=== PATIENT | male | born 1980 | race Caucasian/White ===

== ENCOUNTER 2022-10-08 16:38 | Observation (INO) | payer MEDICAID, SELFPAY ==
[2022-10-08 16:49] VITALS: BP 166/84; PULSE 112; TEMP 37.3; O2SAT 95
--- NOTE | 2022-10-08 17:03 | CRLHL7_ITS ---
For Patients: As a result of the Century Cures Act, medical imaging exams and procedure reports are released immediately into your electronic medical record. You may view this report before your referring provider. If you have questions, please contact your health care provider. INDICATION: Left lower quadrant abdominal pain.. TECHNIQUE: CT abdomen and pelvis acquired with 100 cc Isovue 370 IV contrast. COMPARISON: None. FINDINGS: Lower chest: Unremarkable. Liver: Unremarkable. Normal in size and attenuation. No suspicious masses. Gallbladder and bile ducts: Unremarkable. No stones or inflammation. No biliary dilatation. Pancreas: Unremarkable. No mass or inflammation. Spleen: A few scattered calcified granulomas. Normal in size. No masses. Adrenal glands: Unremarkable. No nodules. Kidneys: Unremarkable. No suspicious masses, stones, or hydronephrosis. GI tract: Wall thickening, mucosal enhancement and surrounding fat stranding along the sigmoid colon indicative of diverticulitis. No focal adjacent drainable fluid collections. Associated small fluid in the pelvis. Associated peritoneal thickening along the left pelvis. Normal appendix. No bowel obstruction. Vasculature: Abdominal aorta is normal in caliber. Mesenteric arteries are patent. Lymph nodes: No lymphadenopathy. Peritoneum/Abdominal Wall: Unremarkable. No sign of mass or infiltration. No free air or significant free fluid. Pelvis: Thickening in the bladder wall may be related to incomplete distention or reactive to adjacent diverticulitis. Bones: Unremarkable for age. IMPRESSION: Acute uncomplicated sigmoid diverticulitis. Apparent wall thickening of the bladder likely related to incomplete distention or reactive to adjacent diverticulitis. Correlate with UA. Please note that all CT scans at this facility use dose modulation, iterative reconstruction, and/or weight-based dosing when appropriate to reduce radiation dose to as low as reasonably achievable. Dictated by Jhoan Nesbitt MD @ 10/08/2022 7:22:04 PM (Electronically Signed)
[2022-10-08 17:22] LABS: Appearance Urine Clear (Clear); Bilirubin Urine Negative (Negative); Blood Urine Negative (Negative); Color Urine Yellow (Yellow); Glucose Urine Negative (Negative); Ketones Urine 2+ (Negative); Leukocyte Esterase Urine Negative (Negative); Nitrite Urine Negative (Negative); Protein Urine 1+ (Negative); Specific Gravity Urine 1.015 (1.000-1.030); pH Urine 7.5 (5.0-8.5)
[2022-10-08 17:24] LABS: Basophils Percent Auto 0.1 % (0.0-3.0); Eosinophils Percent Auto 0.1 % (0.0-7.0); Hematocrit 43.4 % (37.0-53.0); Hemoglobin* 15.6 gm/dL (13.5-17.5); Immature Granulocytes Pct Auto 0.2 %; Lymphocytes Percent Auto 6.7 % (20-44); Mean Corpuscular HGB Conc 36 gm/dL (32-36); Mean Corpuscular Hemoglobin 32 pg (26-34); Mean Corpuscular Volume 88 fL (80-100); Monocytes Percent Auto 7.6 % (0.0-11.0); Neutrophils Percent Auto 85.3 % (42.0-72.0); Platelet Count* 223 K/uL (140-440); RDW Coefficient of Variation % 11.4 % (11.5-15.5); Red Blood Count 4.96 m/uL (4.30-5.90); Slide Review Reflex No; White Blood Count* 14.28 K/uL (4.50-11.00)
[2022-10-08] MEDS: KETOROLAC 30 MG/ML inj IVP (17:32)
[2022-10-08] MEDS: ONDANSETRON 2 MG/ML inj 4 MG IVP (17:32)
[2022-10-08] MEDS: 0.9 % SODIUM CHLORIDE 1000 ml 1,000 ML IV (17:32)
[2022-10-08 17:42] LABS: Albumin* 4.4 g/dL (3.3-5.0); Chloride* 98 mmol/L (96-114)
[2022-10-08 17:43] LABS: Potassium* 3.6 mmol/L (3.6-5.1); Sodium* 133 mmol/L (135-149)
[2022-10-08 17:45] LABS: Amylase* 54 U/L (18-89); Creatinine* 0.9 mg/dL (0.5-1.5); Estimated Glomerular Filt Rate 111 ml/min
[2022-10-08 17:46] LABS: Alkaline Phosphatase* 76 U/L (40-150); Aspartate Amino Transferase* 27 U/L (12-35); Bilirubin Direct* 0.5 mg/dL (0.0-0.5); Bilirubin Total* 1.9 mg/dL (0.1-1.5); Blood Urea Nitrogen* 12 mg/dL (5-24); Carbon Dioxide* 26 mmol/L (20-32); Glucose* 115 mg/dL (60-115); Lipase* 35 U/L (23-300); Total Protein* 7.7 g/dL (6.0-8.3)
[2022-10-08 17:47] LABS: Alanine Aminotransferase* 46 U/L (4-50); Calcium* 9.1 mg/dL (8.4-10.6)
[2022-10-08 17:50] LABS: RBC Urine 0-2 (0-2); Squamous Epithelial Cell Urine Few (None-Few); WBC Urine 0-2 (0-5)
--- NOTE | 2022-10-08 17:51 | ED_ITS ---
HPI - Abdominal Pain General Date Seen: 10/08/22 Chief Complaint: Abdominal Pain Stated Complaint: Abdominal Pain Time Seen by Provider: 10/08/22 16:40 Source: patient Mode of arrival: ambulatory Limitations: no limitations History of Present Illness HPI narrative: Patient is a very nice 41-year-old gentleman who presents here with abdominal pain, this occurred for the last 3-4 days he localizes to his left lower quadrant, he took some ibuprofen this morning with maybe a little improvement, it has gradually been getting worse, he is feels like that it is almost like yes to have a bowel movement or fart and will go way. He has never before had this, he called the nurse practitioner friend today and she was worried about diverticulitis. He went to the local urgent care but they shooed him away from there and told to come to the emergency room. Feels like he may have had a fever for the last couple days, no problems with urination, denies any cough cold-like symptoms sore throat, chest pain, he has never before had any previous surgeries, uses occasional alcohol but not to exceed accessed. MD elicited complaint: abdominal pain Pertinent past history: none Related Data Home Medications Medication Instructions Recorded Confirmed No Known Home Medications 10/08/22 10/08/22 Allergies Allergy/AdvReac Type Severity Reaction Status Date / Time No Known Drug Allergies Allergy Verified 10/08/22 16:53 Review of Systems Status of ROS Reports: 10 or more systems reviewed and unremarkable except as noted in History and below [facility] Social History Smoking Status: Never smoker How often do you have a drink containing alcohol: 2-3 times a week How many standard drinks containing alcohol do you have on a typical day: 1 or 2 AUDIT-C Alcohol total score: 3 Non-prescribed substance use: denies use service: No Exam Narrative: Exam Narrative: Patient is seen and stabilization room 2 he appears to be in no distress very nice gentleman eloquent speaker. His pupils are equal round reactive to light there is no scleral icterus or redness there is TMs are normal his oropharynx is normal his neck is supple, chest is good air entry bilaterally with no wheezing crackles noted his heart sounds are normal his abdomen shows tenderness more in the left lower quadrant, very specific, and I would describe it as moderate to severe. There is no peritoneal signs however bowel sounds are normal, normal male genitalia, no hernias are noted, nontender testicles. That shows no tenderness to palpation no swelling, no organomegaly, he moves all extremities independently and well. Const: Vital Signs, click to edit/add: Vital Signs - 24 hr 10/08/22 16:49 Temperature 99.1 F Pulse Rate [Pulse Oximeter] 112 H Blood Pressure [Ri ght Upper Arm] 166/84 H Pulse Oximetry 95 Oxygen Delivery Me thod Room Air Documenting provider has reviewed patient's vital signs: yes Course Course Hospital Course: I discussed with the patient that I spoke to Dr. De La Garza my general surgeon, he has a severe case of diverticulitis by my review of his CT and also Dr. De La Garza is we do not see any evidence of perforation but there is a lot of fluid in suggestion, that he would benefit from staying in the hospital. His white count is elevated, he has had a couple episodes of vomiting, he still is passing gas and having bowel movements but still would benefit from coming in, I then spoke to Dr. Moura my hospitalist, she agreed to admit him to the hospital. Vital Signs Vital signs: Initial Vital Signs Temperature 99.1 F 10/08/22 16:49 Temperature Source Temporal Artery Scan 10/08/22 16:49 Pulse Rate 112 H 10/08/22 16:49 Blood Pressure 166/84 H 10/08/22 16:49 Blood Pressure Mean 111 10/08/22 16:49 Blood Pressure Position Sitting 10/08/22 16:49 Pulse Oximetry 95 10/08/22 16:49 Oxygen Delivery Method Room Air 10/08/22 16:49 Vital Signs Temperature 99.1 F 10/08/22 16:49 Pulse Rate 112 H 10/08/22 16:49 Blood Pressure 166/84 H 10/08/22 16:49 Pulse Oximetry 95 10/08/22 16:49 Oxygen Delivery Method Room Air 10/08/22 16:49 Temperature 99.1 F 10/08/22 16:49 Pulse Rate 112 H 10/08/22 16:49 Blood Pressure 166/84 H 10/08/22 16:49 Pulse Oximetry 95 10/08/22 16:49 Oxygen Delivery Method Room Air 10/08/22 16:49 MDM - Abdominal Pain MDM Narrative Medical decision making narrative: During this evaluation of this patient I considered multiple differential diagnosis is which included the life-threatening such as appendicitis, aortic aneurysm, mesenteric ischemia, bowel perforation, volvulus, and bowel obstruction. Other differential diagnosis is include but are not limited to cholecystitis, pancreatitis, hepatitis, gastritis, GERD, diverticulitis, peptic ulcer disease, pyelonephritis/UTI, renal colic/stone, testicular torsion as well as other acute scrotal processes, inflammatory bowel disease, as well as other etiologies Medical Records Attestation: I reviewed the patient's medical records. Lab Data Attestation: I reviewed the patient's lab results. Labs: Lab Results 10/08/22 10/08/22 Range/Units 16:49 17:15 WBC 14.28 H (4.50-11.00) K/uL RBC 4.96 (4.30-5.90) m/uL Hgb 15.6 (13.5-17.5) gm/dL Hct 43.4 (37.0-53.0) % MCV 88 (80-100) fL MCH 32 (26-34) pg MCHC 36 (32-36) gm/dL RDW Coeff of Mia 11.4 L (11.5-15.5) % Plt Count 223 (140-440) K/uL Neut % (Auto) 85.3 H (42.0-72.0) % Lymph % (Auto) 6.7 L (20-44) % [place] % (Auto) 7.6 (0.0-11.0) % Eos % (Auto) 0.1 (0.0-7.0) % Baso % (Auto) 0.1 (0.0-3.0) % Neut # (Auto) 12.20 H (1.7-7.0) K/uL Lymph # (Auto) 1.00 (0.90-2.90) K/uL [place] # (Auto) 1.10 H (0.00-0.90) K/UL Eos # (Auto) 0.00 (0.00-0.50) K/uL Baso # (Auto) 0.00 (0.00-0.30) K/uL Sodium 133 L (135-149) mmol/L Potassium 3.6 (3.6-5.1) mmol/L Chloride 98 (96-114) mmol/L Carbon Dioxide 26 (20-32) mmol/L BUN 12 (5-24) mg/dL Creatinine 0.9 (0.5-1.5) mg/dL Estimated Creat Clear 116.20 Estimated GFR 111 ml/min Glucose 115 (60-115) mg/dL Calcium 9.1 (8.4-10.6) mg/dL Total Bilirubin 1.9 H (0.1-1.5) mg/dL Direct Bilirubin 0.5 (0.0-0.5) mg/dL AST 27 (12-35) U/L ALT 46 (4-50) U/L Alkaline Phosphatase 76 (40-150) U/L C-Reactive Protein 15.0 H (0.5-1.0) mg/dL Total Protein 7.7 (6.0-8.3) g/dL Albumin 4.4 (3.3-5.0) g/dL Amylase 54 (18-89) U/L Lipase 35 (23-300) U/L Urine Color Yellow (Yellow) Urine Appearance Clear (Clear) Urine pH 7.5 (5.0-8.5) Ur Specific [place] 1.015 (1.000-1.030) Urine Protein 1+ A (Negative) Urine Glucose (UA) Negative (Negative) Urine Ketones 2+ A (Negative) Urine Blood Negative (Negative) Urine Nitrite Negative (Negative) Urine Bilirubin Negative (Negative) Urine Urobilinogen 1.0 (0.2-1.0) Ur Leukocyte Esterase Negative (Negative) Urine RBC 0-2 (0-2) Urine WBC 0-2 (0-5) Ur Squamous Epith Cells Few (None-Few) Urine Bacteria None (None) Imaging Data CT scan - abdomen: Attestation: I have reviewed the pertinent imaging results. My impression: Severe left lower quadrant diverticulitis, with the fluid, no evidence of abscess I can review see. Or perforation. Formal review by Radiology pending Discharge Plan Discharge Clinical Impression: Diverticulitis Patient Disposition: Admitted As Inpatient Condition: Stable Prescriptions: No Action No Known Home Medications Follow Up/Referrals: Provider,Not a Local [Primary Care Provider] -
[2022-10-08] MEDS: PIPERACILLIN/TAZOBACTAM 3.375 GM in 0.9 % SODIUM CHLORIDE Mini-bag 100 ML IVPB (18:24)
[2022-10-08 19:54] VITALS: BP 146/77; PULSE 92; RESP 16; TEMP 37.2; O2SAT 93
[2022-10-08 20:29] LABS: SARS Antigen* Negative (Negative)
[2022-10-08 20:52] VITALS: BP 137/91; RESP 18; TEMP 37.3; O2SAT 96; BMI 31.1
--- NOTE | 2022-10-08 22:10 | P.IMHP_ITS ---
Hospitalist- H&P: HPI History of Present Illness Time Seen by Provider: 22:10 Date Seen: 10/09/22 Chief complaint: Abdominal Pain Narrative: Carlos Manuel Aviles is a 41 year old otherwise healthy male who presented through the ER for worsening abdominal pain. Over the last week he has experienced some low back pain, but thought it was related to recently going golfing for the 1st time this season. On he started having cramps and bloating so he did need much that day. On Monday he experienced worse abdominal pain and discomfort that started just below his umbilicus and extended to the left lower quadrant around the belt line. He gets some relief if he lays on his left side. He has been having a feeling of pressure like he needs to defecate, but defecating does not relieve the pain. Today he felt nauseous and had 2 or 3 episodes of emesis. The nausea subsided for a bit after each episode. He thinks that the pain was severe enough that it was causing him to feel nauseous and have emesis. He had some soup today but, not much else. He has had subjective fevers and chills since last night. Additionally over the last few days he has been having a sense of urgency with urination, but denies any foul odor to his urine or pain with urination. He has had no change in the force or size of his stream. He feels that holding his urine is painful. He has never had diverticulitis before. 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 He has also been sitting more this past week, working at the computer to do taxes. He got Toradol in the emergency department along with Zosyn. He tells me he is already starting to feel better. Review of Systems Status of ROS: Reports: 10 or more systems reviewed and unremarkable except as noted in History and below PFSH PFSH Family History Mother Diverticulitis Aunt Diverticulitis Uncle Diverticulitis Social History (Updated 10/09/22 @ 00:08 by Kimberly Moura MD) Narrative: Self employed, property management Life partner, Gerri 1 son, 15 years old Denies tob and recreational drugs. Average 2-3 beers 3 times a week. Highest level of school completed/degree received: Associate degree: occupational, technical, vocational program Smoking Status: Never smoker How often do you have a drink containing alcohol: 2-3 times a week How many standard drinks containing alcohol do you have on a typical day: 1 or 2 AUDIT-C Alcohol total score: 3 Non-prescribed substance use: denies use Caffeine: Yes service: No Meds Home Medications and Allergies Home Medications Medication Instructions Recorded Confirmed Type No Known Home Medications 10/08/22 10/08/22 History Allergies Allergy/AdvReac Type Severity Reaction Status Date / Time No Known Drug Allergies Allergy Verified 10/08/22 16:53 Exam Narrative: Exam Narrative: General: He was lying on his left side when I walked in, and appeared a little uncomfortable. No acute distress. Awake alert oriented x3. HEENT: Normocephalic atraumatic, pupils equally round and reactive to light and accommodation. Oropharynx clear. Mucous membranes are moist. No cervical lymphadenopathy, thyromegaly or carotid bruits. No JVD. Cardiovascular: Regular rate and rhythm. No murmurs, gallops, or rubs. Chest: No increased work of breathing. Clear to auscultation bilaterally. No crackles or wheezes. Abdomen: Bowel sounds present. Soft, nondistended, fullness in the left lower quadrant with moderate tenderness to palpation in this area. There is no rebound tenderness or guarding. No hepatosplenomegaly or masses. Extremities: No edema, no cyanosis or clubbing. Skin: No jaundice, no pallor, no rashes. Const: Vital Signs, click to edit/add: Vital Signs - 24 hr 10/08/22 16:49 10/08/22 19:54 10/08/22 20:52 Temperature 99.1 F 99.0 F Pulse Rate [Pulse Oximeter] 112 H 92 Respiratory Rate 16 Blood Pressure [Le ft Arm] Blood Pressure [Ri ght Upper Arm] 166/84 H 146/77 H Pulse Oximetry 95 93 96 Oxygen Delivery Me thod Room Air Room Air Room Air 10/08/22 20:52 Temperature 99.1 F Pulse Rate [Pulse Oximeter] Respiratory Rate 18 Blood Pressure [Le ft Arm] 137/91 H Blood Pressure [Ri ght Upper Arm] Pulse Oximetry 96 Oxygen Delivery Me thod Room Air Documenting provider has reviewed patient's vital signs: yes Hospitalist - H&P: Result Labs Labs: Short CBC 10/08/22 Range/Units 17:15 WBC 14.28 H (4.50-11.00) K/uL Hgb 15.6 (13.5-17.5) gm/dL Hct 43.4 (37.0-53.0) % Plt Count 223 (140-440) K/uL BMP 10/08/22 17:15 Sodium 133 L Potassium 3.6 Chloride 98 Carbon Dioxide 26 BUN 12 Creatinine 0.9 Glucose 115 Calcium 9.1 Liver Function 10/08/22 Range/Units 17:15 Total Bilirubin 1.9 H (0.1-1.5) mg/dL Direct Bilirubin 0.5 (0.0-0.5) mg/dL AST 27 (12-35) U/L ALT 46 (4-50) U/L Alkaline Phosphatase 76 (40-150) U/L Albumin 4.4 (3.3-5.0) g/dL Urine 10/08/22 Range/Units 16:49 Urine Color Yellow (Yellow) Urine Appearance Clear (Clear) Urine pH 7.5 (5.0-8.5) Ur Specific [place] 1.015 (1.000-1.030) Urine Protein 1+ A (Negative) Urine Glucose (UA) Negative (Negative) Ordering Physician: Ryan Covington M.D. Date of Service: 10/08/22 Procedure(s): CT abdomen pelvis w con Accession Number(s): [id number] cc: Provider,Not a Local ; Ryan Covington M.D.~ For Patients: As a result of the Century Cures Act, medical imaging exams and procedure reports are released immediately into your electronic medical record. You may view this report before your referring provider. If you have questions, please contact your health care provider. INDICATION: Left lower quadrant abdominal pain.. TECHNIQUE: CT abdomen and pelvis acquired with 100 cc Isovue 370 IV contrast. COMPARISON: None. FINDINGS: Lower chest: Unremarkable. Liver: Unremarkable. Normal in size and attenuation. No suspicious masses. Gallbladder and bile ducts: Unremarkable. No stones or inflammation. No biliary dilatation. Pancreas: Unremarkable. No mass or inflammation. Spleen: A few scattered calcified granulomas. Normal in size. No masses. Adrenal glands: Unremarkable. No nodules. Kidneys: Unremarkable. No suspicious masses, stones, or hydronephrosis. GI tract: Wall thickening, mucosal enhancement and surrounding fat stranding along the sigmoid colon indicative of diverticulitis. No focal adjacent drainable fluid collections. Associated small fluid in the pelvis. Associated peritoneal thickening along the left pelvis. Normal appendix. No bowel obstruction. Vasculature: Abdominal aorta is normal in caliber. Mesenteric arteries are patent. Lymph nodes: No lymphadenopathy. Peritoneum/Abdominal Wall: Unremarkable. No sign of mass or infiltration. No free air or significant free fluid. Pelvis: Thickening in the bladder wall may be related to incomplete distention or reactive to adjacent diverticulitis. Bones: Unremarkable for age. IMPRESSION: Acute uncomplicated sigmoid diverticulitis. Apparent wall thickening of the bladder likely related to incomplete distention or reactive to adjacent diverticulitis. Correlate with UA. Please note that all CT scans at this facility use dose modulation, iterative reconstruction, and/or weight-based dosing when appropriate to reduce radiation dose to as low as reasonably achievable. Dictated by Jhoan Nesbitt MD @ 10/08/2022 7:22:04 PM (Electronically Signed) Assessment and Plan Assessment and plan (1) Diverticulitis: Problem comment: Start ertapenem IV. Clear liquids for now. Admit for observation. Follow WBC and CRP. Status: Acute (2) Total bilirubin, elevated: Problem comment: Suspect Gilbert's syndrome - recheck in am Status: Acute (3) Hyponatremia: Problem comment: Mild, asymptomatic. Patient states that he drinks water constantly, even waking in the middle of the night to drink water. 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 Status: Acute
[2022-10-08] MEDS: ERTAPENEM 1 GM in 0.9 % SODIUM CHLORIDE Mini-bag 100 ML IVPB (22:50)
[2022-10-08] MEDS: 0.9 % SODIUM CHLORIDE 250 ml IV (22:51)
[2022-10-08] MEDS: SODIUM CHLORIDE 0.9 % (FLUSH) 10 ML SYRINGE 5 ML IVF (22:51)
[2022-10-08 23:00] VITALS: BP 130/76; PULSE 94; RESP 18; TEMP 37.6; O2SAT 95
[2022-10-09 03:00] VITALS: BP 122/68; PULSE 86; RESP 18; TEMP 37.3; O2SAT 96
--- NOTE | 2022-10-09 06:27 | PC.NURSE ---
Shift note: Pt ambulated to the unit for admission at 2039 accompanied by ED nurse. Alert, orient and conscious on arrival. Pt confirmed of abdominal tenderness and pain rated at 3. Vital since were stable on admission. Admission process followed, pt oriented to his room, education on condition given, all questions answered and made comfortable in bed. No visible skin problem noted, lungs sound clear, abdominal sound present and active in all 4 quadrants. Pt appeared anxious on admission because he said his [id number] of colon cancer and he is afraid this may lead to that. Education about condition calmed patient and verbalized understanding and reduction in anxiety. further explained the condition with x-rays taking at ED. Pt is doing well this morning.
[2022-10-09 06:54] LABS: Basophils Percent Auto 0.3 % (0.0-3.0); Eosinophils Percent Auto 0.3 % (0.0-7.0); Hematocrit 41.2 % (37.0-53.0); Hemoglobin* 14.4 gm/dL (13.5-17.5); Immature Granulocytes Pct Auto 0.3 %; Lymphocytes Percent Auto 10.6 % (20-44); Mean Corpuscular HGB Conc 35 gm/dL (32-36); Mean Corpuscular Hemoglobin 31 pg (26-34); Mean Corpuscular Volume 89 fL (80-100); Monocytes Percent Auto 6.6 % (0.0-11.0); Neutrophils Percent Auto 81.9 % (42.0-72.0); Platelet Count* 223 K/uL (140-440); RDW Coefficient of Variation % 11.6 % (11.5-15.5); Red Blood Count 4.61 m/uL (4.30-5.90); White Blood Count* 11.29 K/uL (4.50-11.00)
[2022-10-09 06:55] LABS: Slide Review Reflex No
[2022-10-09 07:06] LABS: Albumin* 3.9 g/dL (3.3-5.0); Chloride* 101 mmol/L (96-114)
[2022-10-09 07:07] LABS: Potassium* 3.8 mmol/L (3.6-5.1); Sodium* 135 mmol/L (135-149)
[2022-10-09 07:09] LABS: Bilirubin Total* 1.7 mg/dL (0.1-1.5); Est. Creatinine Clearance* 104.58; Estimated Glomerular Filt Rate 98 ml/min
[2022-10-09 07:10] LABS: Alanine Aminotransferase* 42 U/L (4-50); Alkaline Phosphatase* 70 U/L (40-150); Aspartate Amino Transferase* 30 U/L (12-35); Blood Urea Nitrogen* 13 mg/dL (5-24); Calcium* 8.5 mg/dL (8.4-10.6); Carbon Dioxide* 29 mmol/L (20-32); Glucose* 110 mg/dL (60-115); Total Protein* 6.9 g/dL (6.0-8.3)
[2022-10-09 07:57] LABS: C Reactive Protein* 20.5 mg/dL (0.5-1.0)
[2022-10-09 08:00] VITALS: BP 129/81; PULSE 85; RESP 18; TEMP 37; O2SAT 97
[2022-10-09] MEDS: KETOROLAC 30 MG/ML inj IVP (08:16)
[2022-10-09] MEDS: 0.9 % SODIUM CHLORIDE 1000 ml 1,000 ML IV (09:00)
[2022-10-09] MEDS: ERTAPENEM 1 GM in 0.9 % SODIUM CHLORIDE Mini-bag 100 ML IVPB (12:02)
[2022-10-09] MEDS: SODIUM CHLORIDE 0.9 % (FLUSH) 10 ML SYRINGE 5 ML IVF (12:02)
--- NOTE | 2022-10-09 12:44 | PM.DS1 ---
DS: Providers Provider Time Seen by Provider: 12:44 Date Seen: 10/09/22 Date of admission: 10/08/22 20:01 Primary care physician: Not a Local Provider Admitting Clinician: Kimberly Moura MD Attending Physician on discharge: Brandon Arreguin MD Date of Discharge: 10/09/22 DS: Diagnosis Discharge Diagnosis (1) Diverticulitis: Status: Acute Problem details: Started ertapenem IV. Ordered for a total of 10 days to be completed as an oupatient. Follow up with Dr. Camacho or Partner this week. (2) Total bilirubin, elevated: Status: Acute Problem details: Suspect Gilbert's syndrome. Decreased from 1.9 to 1.7 in the hospital. DS: Summary Hospital Course Hospital Course: Carlos Manuel was admitted with diverticulitis improved quickly in the hospital with 2 doses of ertapenem. He felt better with the antibiotics. He tolerated a full liquid diet. His white count came down Time Spent with Patient Time attestation: Total time spent providing and/or coordinating discharge services: Exam Const: Vital Signs, click to edit/add: Vital Signs - 24 hr 10/08/22 16:49 10/08/22 19:54 10/08/22 20:52 Temperature 99.1 F 99.0 F Pulse Rate [Left P ulse Oximeter] Pulse Rate [Pulse Oximeter] 112 H 92 Respiratory Rate 16 Blood Pressure [Le ft Arm] Blood Pressure [Ri ght Upper Arm] 166/84 H 146/77 H Pulse Oximetry 95 93 96 Oxygen Delivery Ks thod Room Air Room Air Room Air 10/08/22 20:52 10/08/22 23:00 10/09/22 03:00 Temperature 99.1 F 99.6 F 99.1 F Pulse Rate [Left P ulse Oximeter] 94 86 Pulse Rate [Pulse Oximeter] Respiratory Rate 18 18 18 Blood Pressure [Le ft Arm] 137/91 H 130/76 122/68 Blood Pressure [Ri ght Upper Arm] Pulse Oximetry 96 95 96 Oxygen Delivery Me thod Room Air Room Air Room Air 10/09/22 08:00 10/09/22 08:00 Temperature 98.6 F Pulse Rate [Left P ulse Oximeter] 85 85 Pulse Rate [Pulse Oximeter] Respiratory Rate 18 18 Blood Pressure [Le ft Arm] 129/81 Blood Pressure [Ri ght Upper Arm] Pulse Oximetry 97 Oxygen Delivery Me thod Room Air DS: Data Data Completed and Pending Labs on day of discharge: Labs from last 24 hours 10/09/22 10/08/22 10/08/22 06:28 20:01 17:15 WBC 11.29 H 14.28 H RBC 4.61 4.96 Hgb 14.4 15.6 Hct 41.2 43.4 MCV 89 88 MCH 31 32 MCHC 35 36 RDW Coeff of Mia 11.6 11.4 L Plt Count 223 223 Neut % (Auto) 81.9 H 85.3 H Lymph % (Auto) 10.6 L 6.7 L [place] % (Auto) 6.6 7.6 Eos % (Auto) 0.3 0.1 Baso % (Auto) 0.3 0.1 Neut # (Auto) 9.20 H 12.20 H Lymph # (Auto) 1.20 1.00 [place] # (Auto) 0.70 1.10 H Eos # (Auto) 0.00 0.00 Baso # (Auto) 0.00 0.00 Sodium 135 133 L Potassium 3.8 3.6 Chloride 101 98 Carbon Dioxide 29 26 BUN 13 12 Creatinine 1.0 0.9 Estimated Creat Clear 104.58 116.20 Estimated GFR 98 111 Glucose 110 115 Calcium 8.5 9.1 Total Bilirubin 1.7 H 1.9 H Direct Bilirubin 0.5 AST 30 27 ALT 42 46 Alkaline Phosphatase 70 76 C-Reactive Protein 20.5 H 15.0 H Total Protein 6.9 7.7 Albumin 3.9 4.4 Amylase 54 Lipase 35 Urine Color Urine Appearance Urine pH Ur Specific [place] Urine Protein Urine Glucose (UA) Urine Ketones Urine Blood Urine Nitrite Urine Bilirubin Urine Urobilinogen Ur Leukocyte Esterase Urine RBC Urine WBC Ur Squamous Epith Cells Urine Bacteria SARS-CoV-2 Ag (Rapid) Negative 10/08/22 16:49 WBC RBC Hgb Hct MCV MCH MCHC RDW Coeff of Mia Plt Count Neut % (Auto) Lymph % (Auto) [place] % (Auto) Eos % (Auto) Baso % (Auto) Neut # (Auto) Lymph # (Auto) [place] # (Auto) Eos # (Auto) Baso # (Auto) Sodium Potassium Chloride Carbon Dioxide BUN Creatinine Estimated Creat Clear Estimated GFR Glucose Calcium Total Bilirubin Direct Bilirubin AST ALT Alkaline Phosphatase C-Reactive Protein Total Protein Albumin Amylase Lipase Urine Color Yellow Urine Appearance Clear Urine pH 7.5 Ur Specific [place] 1.015 Urine Protein 1+ A Urine Glucose (UA) Negative Urine Ketones 2+ A Urine Blood Negative Urine Nitrite Negative Urine Bilirubin Negative Urine Urobilinogen 1.0 Ur Leukocyte Esterase Negative Urine RBC 0-2 Urine WBC 0-2 Ur Squamous Epith Cells Few Urine Bacteria None SARS-CoV-2 Ag (Rapid) Discharge Plan Discharge Disposition: Home, Self-Care Date of Admission: 10/08/22 20:01 Attending Provider on Discharge: Brandon Arreguin Primary Care Provider: Provider,Not a Local Condition: Stable Anticipated Discharge Date/Time: 10/09/22 13:30 Discharge Medications: New Ertapenem 1 GM 0.9 % SODIUM CHLORIDE Mini-bag 100 ML 200 mls/hr IVPB Q24H Reason for use: Pyelonephritis Last dose 10/17/2022. Ordered By: Brandon Arreguin MD Last Taken: 10/09/22 12:02 200 mls/hr No Action No Known Home Medications Discharge Orders: Discharge Order (Routine); Ordered 10/09/22 Ordered By: Brandon Arreguin Patient Education: Diverticulitis (DC), Diverticulitis Diet (DC) Follow Up Appointments: Provider,Not a Local [Primary Care Provider] - Forms: [place] Info Instructions
[2022-10-09 12:46] VITALS: RESP 18; TEMP 37
--- NOTE | 2022-10-09 12:52 | P.DS_ITS ---
DS: Providers Provider Date Seen: 10/09/22 Date of admission: 10/08/22 20:01 Primary care physician: Not a Local Provider Admitting Clinician: Kimberly Moura MD Attending Physician on discharge: Kimberly Moura MD DS: Diagnosis Discharge Diagnosis (1) Diverticulitis: Status: Acute Problem details: Started ertapenem IV. Ordered for a total of 10 days to be completed as an oupatient. Follow up with Dr. Camacho or Partner this week. White count went down from 14.3 to 11.3 while in the hospital. Carlos Manuel is very motivated to go home today. Consider outpatient colonoscopy when fully recovered. (2) Total bilirubin, elevated: Status: Acute Problem details: Suspect Gilbert's syndrome. Decreased from 1.9 to 1.7 in the hospital. DS: Summary Hospital Course Hospital Course: Carlos Manuel was admitted with diverticulitis improved quickly in the hospital with 2 doses of ertapenem. He felt better with the antibiotics. He tolerated a full liquid diet. His white count came down from 14.3 to 11.3. He was eager to go home on outpatient ertapenem. Consider oupatient colonoscopy when fully recovered. His total bilirubin went from 1.9-1.7 while he was in the hospital. This was felt to be due to Gilbert syndrome. Time Spent with Patient Time attestation: Total time spent providing and/or coordinating discharge services: Time spent: Greater than 30 minutes Specific discharge activities: More than half the time was spent coordinating care. Exam Const: Vital Signs, click to edit/add: Vital Signs - 24 hr 10/08/22 16:49 10/08/22 19:54 10/08/22 20:52 Temperature 99.1 F 99.0 F Pulse Rate [Left P ulse Oximeter] Pulse Rate [Pulse Oximeter] 112 H 92 Respiratory Rate 16 Blood Pressure [Le ft Arm] Blood Pressure [Ri ght Upper Arm] 166/84 H 146/77 H Pulse Oximetry 95 93 96 Oxygen Delivery Me thod Room Air Room Air Room Air 10/08/22 20:52 10/08/22 23:00 10/09/22 03:00 Temperature 99.1 F 99.6 F 99.1 F Pulse Rate [Left P ulse Oximeter] 94 86 Pulse Rate [Pulse Oximeter] Respiratory Rate 18 18 18 Blood Pressure [Le ft Arm] 137/91 H 130/76 122/68 Blood Pressure [Ri ght Upper Arm] Pulse Oximetry 96 95 96 Oxygen Delivery Me thod Room Air Room Air Room Air 10/09/22 08:00 10/09/22 08:00 10/09/22 12:46 Temperature 98.6 F 98.6 F Pulse Rate [Left P ulse Oximeter] 85 85 Pulse Rate [Pulse Oximeter] Respiratory Rate 18 18 18 Blood Pressure [Le ft Arm] 129/81 Blood Pressure [Ri ght Upper Arm] Pulse Oximetry 97 Oxygen Delivery Me thod Room Air HEENT is within normal limits. Cardiovascular regular rate and rhythm Lungs clear to auscultation bilaterally. Abdomen positive bowel sounds soft nontender with no flank tenderness. Extremities are negative for edema and have full range of motion. Skin is warm and dry without rashes. Documenting provider has reviewed patient's vital signs: yes DS: Data Data Completed and Pending Labs on day of discharge: Labs from last 24 hours 10/09/22 10/08/22 10/08/22 06:28 20:01 17:15 WBC 11.29 H 14.28 H RBC 4.61 4.96 Hgb 14.4 15.6 Hct 41.2 43.4 MCV 89 88 MCH 31 32 MCHC 35 36 RDW Coeff of Mia 11.6 11.4 L Plt Count 223 223 Neut % (Auto) 81.9 H 85.3 H Lymph % (Auto) 10.6 L 6.7 L Boundary % (Auto) 6.6 7.6 Eos % (Auto) 0.3 0.1 Baso % (Auto) 0.3 0.1 Neut # (Auto) 9.20 H 12.20 H Lymph # (Auto) 1.20 1.00 Boundary # (Auto) 0.70 1.10 H Eos # (Auto) 0.00 0.00 Baso # (Auto) 0.00 0.00 Sodium 135 133 L Potassium 3.8 3.6 Chloride 101 98 Carbon Dioxide 29 26 BUN 13 12 Creatinine 1.0 0.9 Estimated Creat Clear 104.58 116.20 Estimated GFR 98 111 Glucose 110 115 Calcium 8.5 9.1 Total Bilirubin 1.7 H 1.9 H Direct Bilirubin 0.5 AST 30 27 ALT 42 46 Alkaline Phosphatase 70 76 C-Reactive Protein 20.5 H 15.0 H Total Protein 6.9 7.7 Albumin 3.9 4.4 Amylase 54 Lipase 35 Urine Color Urine Appearance Urine pH Ur Specific Warren Urine Protein Urine Glucose (UA) Urine Ketones Urine Blood Urine Nitrite Urine Bilirubin Urine Urobilinogen Ur Leukocyte Esterase Urine RBC Urine WBC Ur Squamous Epith Cells Urine Bacteria SARS-CoV-2 Ag (Rapid) Negative 10/08/22 16:49 WBC RBC Hgb Hct MCV MCH MCHC RDW Coeff of Mia Plt Count Neut % (Auto) Lymph % (Auto) Boundary % (Auto) Eos % (Auto) Baso % (Auto) Neut # (Auto) Lymph # (Auto) Boundary # (Auto) Eos # (Auto) Baso # (Auto) Sodium Potassium Chloride Carbon Dioxide BUN Creatinine Estimated Creat Clear Estimated GFR Glucose Calcium Total Bilirubin Direct Bilirubin AST ALT Alkaline Phosphatase C-Reactive Protein Total Protein Albumin Amylase Lipase Urine Color Yellow Urine Appearance Clear Urine pH 7.5 Ur Specific Warren 1.015 Urine Protein 1+ A Urine Glucose (UA) Negative Urine Ketones 2+ A Urine Blood Negative Urine Nitrite Negative Urine Bilirubin Negative Urine Urobilinogen 1.0 Ur Leukocyte Esterase Negative Urine RBC 0-2 Urine WBC 0-2 Ur Squamous Epith Cells Few Urine Bacteria None SARS-CoV-2 Ag (Rapid) Run Date: 10/09/22 [facility] Page: 1 Run Date: [address] [place], [place] [id number] Clinical Laboratory Report Name: Carlos Manuel Aviles Acct: [id number] Loc: [facility] Age/Sex: 41/M : 1980 Status: ADM BEREKET Fink Dr: Kimberly Moura M.D. Specimen: [id number] Collected: 10/08/22 Received: 10/08/[address]: Ryan Covington M.D. Other Dr: Comments: Source: Unknown Test Result Flag Reference Site Ur Color Yellow Yellow ML Ur Appear Clear Clear ML Ur Glu Negative Negative ML Ur Bilirubin Negative Negative ML Ur Keto 2+ A Negative ML Ur SG 1.015 1.000-1.030 ML Ur Blood Negative Negative ML Ur pH 7.5 5.0-8.5 ML Ur Prot 1+ A Negative ML Ur Uro 1.0 0.2-1.0 ML Ur Nitrite Negative Negative ML Ur Amee Esterase Negative Negative ML Ur RBC 0-2 0-2 ML Ur WBC 0-2 0-5 ML Ur Squam Epi Few None-Few ML Ur Bact None None ML ML - Main Laboratory [address] [place] [address] Phone/ /[phone] Contract Writer: Saige Albrecht MD CLIA #: [id number] Patient: Carlos Manuel Aviles Age/Sex: 41/M Merged With [facility] [id number] Page [address] scan - abdomen: Radiologist's impression: INDICATION: Left lower quadrant abdominal pain.. TECHNIQUE: CT abdomen and pelvis acquired with 100 cc Isovue 370 IV contrast. COMPARISON: None. FINDINGS: Lower chest: Unremarkable. Liver: Unremarkable. Normal in size and attenuation. No suspicious masses. Gallbladder and bile ducts: Unremarkable. No stones or inflammation. No biliary dilatation. Pancreas: Unremarkable. No mass or inflammation. Spleen: A few scattered calcified granulomas. Normal in size. No masses. Adrenal glands: Unremarkable. No nodules. Kidneys: Unremarkable. No suspicious masses, stones, or hydronephrosis. GI tract: Wall thickening, mucosal enhancement and surrounding fat stranding along the sigmoid colon indicative of diverticulitis. No focal adjacent drainable fluid collections. Associated small fluid in the pelvis. Associated peritoneal thickening along the left pelvis. Normal appendix. No bowel obstruction. Vasculature: Abdominal aorta is normal in caliber. Mesenteric arteries are patent. ? Lymph nodes: No lymphadenopathy. Peritoneum/Abdominal Wall: Unremarkable. No sign of mass or infiltration. No free air or significant free fluid. Pelvis: Thickening in the bladder wall may be related to incomplete distention or reactive to adjacent diverticulitis. Bones: Unremarkable for age. IMPRESSION: Acute uncomplicated sigmoid diverticulitis. Apparent wall thickening of the bladder likely related to incomplete distention or reactive to adjacent diverticulitis. Correlate with UA. Please note that all CT scans at this facility use dose modulation, iterative reconstruction, and/or weight-based dosing when appropriate to reduce radiation dose to as low as reasonably achievable. Dictated by Jhoan Nesbitt MD @ 10/08/2022 7:22:04 PM (Electronically Signed) Discharge Plan Discharge Disposition: Home, Self-Care Date of Admission: 10/08/22 20:01 Attending Provider on Discharge: Brandon Arreguin Primary Care Provider: Provider,Not a Local Condition: Stable Anticipated Discharge Date/Time: 10/09/22 13:30 Discharge Medications: New Ertapenem 1 GM 0.9 % SODIUM CHLORIDE Mini-bag 100 ML 200 mls/hr IVPB Q24H Reason for use: Pyelonephritis Last dose 10/17/2022. Ordered By: Brandon Arreguin MD Last Taken: 10/09/22 12:02 200 mls/hr No Action No Known Home Medications Discharge Orders: Discharge Order (Routine); Ordered 10/09/22 Ordered By: Brandon Arreguin Patient Education: Diverticulitis (DC), Diverticulitis Diet (DC) Activity Level: Activity as Tolerated Discharge Diet: Clear Liquid Diet Detail: diverticulitis diet Follow Up Appointments: Crow Camacho MD [Staff Physician] - 10/18/22 11:00 am ([facility]) Provider,Not a Local [Primary Care Provider] - None Forms: [employer] Info Instructions Discharge Comments: Follow up with Dr. Camacho and Partner later this week to recheck. Recheck total bilirubin. It was 1.7 on discharge. Consider outpatient colonoscopy when fully recovered.
--- NOTE | 2022-10-09 14:15 | PC.NURSE ---
VSS AND AFEBRILE. PATIENT'S DIET ADVANCED TO FULL LIQUIDS AND TOLERATED WITH NO REPORT OF N/V OR INCREASED ABDOMINAL PAIN. PATIENT REPORTED HEADACHE AT BEGINNING OF SHIFT THAT WAS RESOLVED WITH TORADOL AND 1L NORMAL SALINE BOLUS. EDUCATION PROVIDED ON DIVERTICULITIS AND DIET. PATIENT TO DC HOME WITH SALINE LOCK IN PLACE TO RIGHT AC FOR CONTINUED OUTPATIENT ANTIBIOTIC INFUSIONS. SITE INTACT AND WRAPPED WITH COBAN PRIOR TO DC AND INSTRUCTIONS PROVIDED TO MONITOR FOR ANY S/S OF INFECTION. ORDERS FOR OUTPATIENT INFUSION FAXED TO PHARMACY AND [facility] WITH REQUEST FOR [facility] TO CONTACT PATIENT 10/10/22 AM TO SET UP TIME FOR INFUSION. REVIEWED DC INSTRUCTIONS WITH PATIENT AND HE DC'D HOME VIA OWN CAR.
== END 2022-10-09 14:20 | disposition home or self-care (01) ==
LOC: ED 19:14 → MEDSURG 20:01
PROVIDERS: Admitting Provider Family Medicine; Emergency Provider Family Medicine; Visit Provider Family Medicine
DX: K57.92 Diverticulitis of intestine, part unspecified, without perforation or abscess without bleeding (principal); E80.7 Disorder of bilirubin metabolism, unspecified; D72.829 Elevated white blood cell count, unspecified; R11.10 Vomiting, unspecified; E87.1 Hypo-osmolality and hyponatremia
CPT/HCPCS: 36415; 74177; 80048; 80053; 80076; 81001; 82150; 83690; 85025; 86140; 87426; 96361; 96365; 96366; 96367; 96375; 96376; 99284; 99285; G0378; J1335; J1885; J2405; J2543; J7030; J7050; Q9967

== ENCOUNTER 2022-10-19 14:30 | Outpatient (RCR) | payer MEDICAID, SELFPAY ==
[2022-10-10 13:52] VITALS: BP 138/77; PULSE 88; RESP 16; TEMP 37.1; O2SAT 94
[2022-10-10] MEDS: ERTAPENEM 1 GM in 0.9 % SODIUM CHLORIDE Mini-bag 100 ML IVPB (14:05)
[2022-10-11 14:48] VITALS: BP 123/81; PULSE 71; RESP 16; TEMP 36.9; O2SAT 98
[2022-10-11] MEDS: ERTAPENEM 1 GM in 0.9 % SODIUM CHLORIDE Mini-bag 100 ML IVPB (14:55)
[2022-10-12 11:45] VITALS: BP 124/69; PULSE 61; RESP 16; TEMP 36.6; O2SAT 96
[2022-10-12] MEDS: ERTAPENEM 1 GM in 0.9 % SODIUM CHLORIDE Mini-bag 100 ML IVPB (12:10)
[2022-10-13] MEDS: ERTAPENEM 1 GM in 0.9 % SODIUM CHLORIDE Mini-bag 100 ML IVPB (14:06)
[2022-10-13 14:11] VITALS: BP 124/74; PULSE 67; RESP 16; TEMP 36.5; O2SAT 96
[2022-10-14 15:22] VITALS: BP 144/86; PULSE 54; RESP 16; TEMP 36.6; O2SAT 97
[2022-10-14] MEDS: ERTAPENEM 1 GM in 0.9 % SODIUM CHLORIDE Mini-bag 100 ML IVPB (15:35)
[2022-10-15 13:17] VITALS: BP 138/92; PULSE 76; RESP 16; TEMP 36.5; O2SAT 96
[2022-10-15] MEDS: 0.9 % SODIUM CHLORIDE 250 ml IV (13:38)
[2022-10-15] MEDS: SODIUM CHLORIDE 0.9 % (FLUSH) 10 ML SYRINGE 5 ML IVF (13:38)
[2022-10-15] MEDS: ERTAPENEM 1 GM in 0.9 % SODIUM CHLORIDE Mini-bag 100 ML IVPB (13:38)
[2022-10-16] MEDS: ERTAPENEM 1 GM in 0.9 % SODIUM CHLORIDE Mini-bag 100 ML IVPB (13:33)
[2022-10-16] MEDS: SODIUM CHLORIDE 0.9 % (FLUSH) 10 ML SYRINGE 5 ML IVF ×2 (13:33→14:15)
[2022-10-16 13:39] VITALS: BP 143/86; PULSE 69; RESP 18; TEMP 36.6; O2SAT 96
--- NOTE | 2022-10-16 14:36 | PC.NURSE ---
Patient pleasant and cooperative. Vitals stable and WNL. Denies pain/nausea. Infusion completed without complication.
[2022-10-17 15:14] VITALS: BP 150/78; PULSE 84; RESP 16; TEMP 36.6; O2SAT 98
[2022-10-17] MEDS: ERTAPENEM 1 GM in 0.9 % SODIUM CHLORIDE Mini-bag 100 ML IVPB (15:17)
[2022-10-17] MEDS: 0.9 % SODIUM CHLORIDE 250 ml IV (15:58)
[2022-10-18 15:16] VITALS: BP 136/73; PULSE 62; RESP 16; TEMP 36.7; O2SAT 98
[2022-10-18] MEDS: ERTAPENEM 1 GM in 0.9 % SODIUM CHLORIDE Mini-bag 100 ML IVPB (15:23)
[2022-10-19 14:47] VITALS: BP 145/78; PULSE 72; RESP 16; TEMP 37.1; O2SAT 98
[2022-10-19] MEDS: ERTAPENEM 1 GM in 0.9 % SODIUM CHLORIDE Mini-bag 100 ML IVPB (14:49)
== END 2023-04-08 23:59 | disposition home or self-care (01) ==
LOC: CCIC 14:30
PROVIDERS: PCP Family Medicine; Visit Provider Clinical Nurse Specialist
DX: K57.92 Diverticulitis of intestine, part unspecified, without perforation or abscess without bleeding (principal)
CPT/HCPCS: 96365; 99211; J1335; J7050